=== PATIENT | male | born 1950 | race Hispanic/Latino ===

== ENCOUNTER 2017-05-23 12:31 | Emergency (ER) | payer MEDICARE, MEDICAID ==
[~2017-05-23] VITALS: Ht 149.9 cm; Wt 70.0 kg
[2017-05-23 12:35] VITALS: BP 147/84; PULSE 57; RESP 16; O2SAT 97
--- NOTE | 2017-05-23 15:25 | ED.REPORT ---
HPI-Dyspnea / Wheezing Date of Service May 23, 2017 ED Provider: Mohinder Villa MD The pt is a 66 y/o male with no pertinent hx who presents to the ED complaining of shortness of breath for a couple of seconds while lying down last night. He denies fever, chest pain, nausea, vomiting and abdominal pain. He has had mild chest pain in the past year but no recent episodes. The pt is asymptomatic in the ED. Nursing Notes Stated Complaint: DIFFICULTY BREATHING Chief Complaint: Respiratory Distress Nursing Notes Reviewed: Yes Allergies: Coded Allergies: No Known Allergies (Unverified , 05/23/17) General Time Seen by MD: 15:42 Chief Complaint Shortness of breath Hx Obtained From: Patient Arrived By: Walk-in Sudden in Onset?: Yes Onset Occurred: Yesterday Symptom Duration: 1 - 15 minutes Severity: Current: No pain currently Severity: Maximum: No pain Recent Healthcare: No recent doctor visit Similar Sx Previous: No Past Medical History Past Medical History none reported Past Surgical History none reported Smoking History Unknown if Ever Smoker Social History Other Social History: Good social support Ambulatory Status Independent Review of Systems Constitutional: Denies: Fever Respiratory: Reports: Shortness of breath Cardiovascular: Denies: Chest pain, Palpitations Complete sys rev & neg: except as marked. GI: Denies: Abdominal pain, Nausea, Vomiting Physical Exam Initial Vital Signs Vital Signs (First) Date Time Temp Pulse Resp B/P Pulse Ox O2 Delivery O2 Flow Rate FiO2 05/23/17 12:35 37.0 57 16 147/84 97 Room Air Initial VS: Reviewed Head / Eyes: Atraumatic, Normocephalic, PERRL Abdomen / GI: Soft, Non-tender, No guarding, No rebound, No distention Extremities: Vascular intact, Neuro intact, No swelling, No tenderness Skin: Warm, Dry, No cyanosis Neurologic: Alert, Oriented, Nonfocal Psychiatric: Mood/affect normal, Behavior normal, Normal thought content General/Constitutional: Awake, Alert, No acute distress, Well appearing, Cooperative Neck: Atraumatic, Supple, Full range of motion, No swelling, Non-tender Respiratory / Chest: Atraumatic, Breath sounds NL, Breath sounds = bilat, No respiratory distress, No rales, No rhonchi, No wheezing Cardiovascular: Heart rate NL, Regular rhythm, Heart sounds NL, No gallop, No murmurs, No rubs Interpretation & Diagnostics Lab Results Interpretation Result Diagram: 05/23/17 1551 05/23/17 1551 Test 05/23/17 15:51 White Blood Count 6.0th/mm3 (3.8-10.1) Red Blood Count 4.19mil/mm3 (4.40-5.80) Hemoglobin 12.8g/dL (13.8-17.2) Hematocrit 36.7% (41.0-50.0) Mean Corpuscular Volume 87.6fL (81-100) Mean Corpuscular Hemoglobin 30.5pg (27.0-35.0) Mean Corpuscular Hemoglobin Concent 34.9% (32.0-37.0) Red Cell Distribution Width 13.6% (12.3-15.4) Platelet Count 341bil/L (150-400) Neutrophils (%) (Auto) 34.8% (40-74) Lymphocytes (%) (Auto) 53.2% (14-46) Monocytes (%) (Auto) 8.5% (4-12) Eosinophils (%) (Auto) 1.8% (0-5) Basophils (%) (Auto) 1.7% (0-3) Sodium Level 136mEq/L (134-144) Potassium Level 3.8mEq/L (3.5-5.2) Chloride Level 103mEq/L (97-108) Carbon Dioxide Level 21mmol/L (18-29) Blood Urea Nitrogen 13mg/dL (8-27) Creatinine 0.69mg/dL (0.76-1.27) Estimat Glomerular Filtration Rate 121mL/min (>59) Glucose Level 120mg/dL (60-99) Calcium Level 8.7mg/dL (8.5-10.1) Total Bilirubin 0.2mg/dL (0.0-1.2) Aspartate Amino Transf (AST/SGOT) 20U/L (0-50) Alanine Aminotransferase (ALT/SGPT) 19U/L (0-44) Alkaline Phosphatase 123U/L (25-160) Troponin T < 0.010ug/L (0.0-0.011) Pro-B-Type Natriuretic Peptide 15.46pg/mL (0-376) Total Protein 7.1g/dL (6.4-8.4) Albumin 4.0g/dL (3.4-5.0) Hold Lea Top Tube Received (Received) ECG Interpretation ECG Interpretation: Sinus rhythm. Rate [address], T changes Q waves in V3 and AVL Time: 15:21 Interpreted by: ED physician X-Ray Chest Interpretation Chest Xray Interpretation: IMPRESSION: Minimal increased pulmonary vascularity with bibasilar atelectasis Dictated by: Kristie Sen M.D. on 05/23/2017 at 15:54 Approved by: Kristie Sen M.D. on 05/23/2017 at 15:54 View: Portable, 1 view Interpretation / Wet Read by: Interpret - Radiologist Re-Eval/Medical Decision Med Decision/Clinical Course 66-year-old male denies past medical history presenting with vague episode of several seconds of dyspnea while sleeping last night. Denies any chest pain. His vital signs are stable here. Workup is negative. Troponins are negative. EKG no changes. He has no risk factors for PE and I do not suspect PE given symptoms are lasting several seconds, no recurrence and no chest pain. Do not suspect ACS given negative troponins many hours after episode, no EKG changes and no chest pain. No identifiable risk factors. Given this occurred while he was sleeping cannot rule out DACIA. Discussed with patient and he agrees with discharge home and follow-up with his primary doctor. Return precautions given. Re-Evaluation/Progress : Time of Eval: 17:19 Re-Evaluation/Progress Note: Rechecked pt. Discussed lab results, imaging results, diagnosis and plan to discharge. Pt understands and agrees with the plan. F/U instruction and RTER warning given. All questions addressed. Counseled Regarding: Diagnosis, Lab results, Need for follow-up, When/why to return to ED Discharge & Departure Impression: Primary Impression: Shortness of breath Disposition: Home Discharge Condition All VS Reviewed: Yes Condition: Stable Patient Instructions: Shortness of Breath (ED) Additional Instructions: Thank you for entrusting us with your care today. Your lab and imaging results were reassuring. No emergent cause of your shortness of breath was found today. Follow up with your primary care provider for further evaluation in the next day or two. Return to the emergency department in case of worsening difficulty in breathing , chest pain, nausea, vomiting, fever or any other new or concerning symptoms. Adriel chin confiarnos rg cuidado hoy. Margy resultados de laboratorio y de imgenes fueron tranquilizadores. Ninguna causa emergente de rg falta de aliento se encontr hoy. [place] un seguimiento con rg proveedor de atencin primaria para miller evaluacin posterior en el da siguiente o dos. Volver al servicio de urgencias en oneyda de empeoramiento de la dificultad para respirar, dolor en el pecho, nuseas, vmitos, fiebre o cualquier otro sntoma nuevo o relacionado. Referrals: Goldie Clemente MD Scribe Attestation Portions of this note were transcribed by Blue Yang. I,Dr. Villa, personally performed the history,physical exam and medical decision-making;I reviewed and confirmed the accuracy of the information in the transcribed note. Signed by Heather Martini. 05/22/17 copies to: Goldie Clemente MD, Ben M MD May 23, 2017 15:25 Blue Yang May 23, 2017 15:46
--- NOTE | 2017-05-23 15:56 | DRSVH ---
PROCEDURE: X-RAY CHEST ONE VIEW, PORTABLE ([id number]) INDICATIONS: dyspnea TECHNIQUE: One view of the chest was acquired. COMPARISON: [facility], CR, XR CHEST 2VW, 11/30/2015, 13:43. FINDINGS: Surgical changes and devices: None. Lungs and pleura: No pleural effusions or pneumothorax. Minimal increased vascularity and bibasilar linear atelectasis. Mediastinum: Mediastinal contours appear normal. Heart size is normal. Bones and chest wall: No suspicious bony lesions. Overlying soft tissues appear unremarkable. IMPRESSION: Minimal increased pulmonary vascularity with bibasilar atelectasis Dictated by: Kristie Sen M.D. on 05/23/2017 at 15:54 Approved by: Kristie Sen M.D. on 05/23/2017 at 15:54
[2017-05-23 16:08] LABS: BASOPHILS % (AUTO) 1.7 % (0-3); EOSINOPHILS % (AUTO) 1.8 % (0-5); MONOCYTES % (AUTO) 8.5 % (4-12); Mean Corpuscular Hemoglobin 30.5 pg (27.0-35.0); Mean Corpuscular Volume 87.6 fL (81-100); NEUTROPHILS % (AUTO) 34.8 % (40-74); Platelet Count 341 bil/L (150-400)
[2017-05-23 16:31] LABS: TROPONIN T < 0.010 ug/L (0.0-0.011)
[2017-05-23 17:25] VITALS: BP 133/73
== END 2017-05-23 17:16 | disposition home or self-care (01) ==
LOC: SED 12:31
DX: R06.02 Shortness of breath (principal)